=== PATIENT | female | born 1990 | race Hispanic/Latino ===

== ENCOUNTER 2024-05-28 13:46 | Emergency (ER) | payer BC, OTHER ==
[~2024-05-28] VITALS: Ht 167.6 cm; Wt 78.0 kg
[~2024-05-28 13:46] MED LIST: ALBU2.5V2 IH; CYCL5TAB3 PO; MONT-46 PO; NAPR-1194 PO; PRED20TA3 PO
[2024-05-28] MEDS: hydrOXYzine 50MG VIAL 50 MG/ML VIAL IM STA (14:43)
--- NOTE | 2024-05-28 14:44 | EKG ---
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
[2024-05-28 14:54] LABS: BASOPHILS # (AUTO) 0.04 K/uL (0.00-0.20); BASOPHILS % (AUTO) 0.5 % (0.0-5.0); EOSINOPHILS # (AUTO) 0.06 K/uL (0.00-0.70); EOSINOPHILS % (AUTO) 0.8 % (0.0-8.0); HEMATOCRIT 42.2 % (36-48); IMMATURE GRANULOCYTE ABSOLUTE 0.02 K/uL (0-1); LYMPHOCYTES # (AUTO) 2.1 K/uL (1.0-4.8); LYMPHOCYTES % (AUTO) 27.3 % (21.0-51.0); MEAN CORPUSCULAR HEMOGLOBIN 29.7 pg (27.0-33.0); MEAN CORPUSCULAR HGB CONC 33.2 g/dL (32.0-36.0); MEAN CORPUSCULAR VOLUME 89.4 fL (79-99); MONOCYTES # (AUTO) 0.6 K/uL (0.1-1.0); MONOCYTES % (AUTO) 7.2 % (3.0-13.0); NEUTROPHILS # (AUTO) 4.9 K/uL (1.8-7.7); NEUTROPHILS % (AUTO) 63.9 % (40.0-77.0); PLATELET COUNT (AUTO) 302 K/uL (130-400); RED BLOOD CELL COUNT(AUTO) 4.72 MIL/uL (4.00-5.50); RED CELL DISTRIBUTION WIDTH 12.6 % (11.0-15.5); WHITE BLOOD COUNT (AUTO) 7.7 K/uL (4.8-10.8)
[2024-05-28 15:05] LABS: CREATININE 0.8 mg/dL (0.5-1.0); POTASSIUM 3.8 mmol/L (3.5-5.1)
--- NOTE | 2024-05-28 16:23 | ERN ---
ED Note History of Present Illness Stated Complaint: LEFT SIDE FACE NUMBNESS/SHAKY Chief Complaint: Other Problems Time Seen by MD: 13:57 Time Seen by Midlevel: 14:00 Dictation: 34-year-old female coming in with complaints of feeling of numbness inside her cheek, and states she had chest pain in the morning. Patient also states she has been under lot of stress taking care of her dad and brother and also has not exam for school. Denies any numbness or tingling or any unilateral weakness. Patient has a cold sore on the side of the numbness of the lip, states she had it for a week and now is healing, also states she has had some congestion. Allergies: Coded Allergies: No Known Allergies (Unverified Allergy, Unknown, 08/31/22) Home Meds Active Scripts Naproxen (Naproxen) 500 Mg Tablet, 500 MG PO BID for 5 Days, #10 TAB Prov:ANTONINO HUMPHREYS 11/01/22 Cyclobenzaprine HCl (Cyclobenzaprine HCl) 5 Mg Tablet, 5 MG PO DAILYDINNER for 5 Days, #5 TAB Prov:ANTONINO HUMPHREYS 11/01/22 Montelukast Sodium (Singulair 10Mg) 10 Mg Tab, 10 MG PO DAILY for 30 Days, #30 TAB Prov:GERARD KNOTT 08/31/22 Prednisone (Prednisone) 20 Mg Tablet, 1 TAB PO BID for 5 Days, #10 TAB 0 Refills TAKE 1 TAB BY MOUTH THREE TIMES PER DAY X3 DAYS, THEN TAKE 1 TAB BY MOUTH TWICE A DAY X2 DAYS, THEN TAKE 1 TAB BY MOUTH ONCE A DAY X1 DAY. Prov:GERARD KNOTT 08/31/22 Albuterol Sulfate (Albuterol Sulfate) 2.5 Mg/3 Ml Vial.neb, 2.5 MG IH Q6H for wheezing for 7 Days, #28 INH Prov:GERARD KNOTT 08/31/22 Past Medical History Past Medical History: Asthma Surgical History: Review of System Dictation Constitutional: Negative for fever,chills, and weight loss Eyes: Negative for injury, pain,redness, and discharge ENT: Negative for injury,pain or swelling, complaining of numbness to the left inside of her mouth. Cardiovascular: Negative for chest pain, palpitations, and edema Respiratory: Negative for shortness of breath, cough, and wheezing, Abdomen/GI: Negative for abdominal pain, nausea, vomiting, diarrhea, and constipation Back: Negative for injury and pain : Negative for injury, bleeding and discharge MS/Extremity: Negative for injury and deformity Skin: Negative for rash, and discoloration Neuro: Negative for headache, weakness, numbness, tingling, and seizure Psych: Negative for suicide ideation, homicidal ideation, and hallucinations Review of Systems: was completed Initial Vital Sign VS Vital Signs Date Time Temp Pulse Resp B/P (MAP) Pulse Ox O2 Delivery O2 Flow Rate FiO2 05/28/24 13:50 98.4 102 18 152/103 97 Room Air 05/28/24 14:12 0 21 Physical Exam Dictation General: awake, alert, NAD Head/Face: Normocephalic, atraumatic Eyes: PERRL, EOMI, vision at baseline ENT: oral cavity clear, TMs clear, no signs of infection, periodontal disease noted, postnasal drip noted, sinus cavities inflamed swollen Neck: Trachea midline, supple, no nuchal rigidity Cardiovascular: RRR, normal S1/S2, No MRGs, no JVD Respiratory: CTAB, no respiratory distress, No rales or wheezes Abdomen: Soft, non-tender, non-distended, normal bowel sounds, no guarding or rebound. Skin: Warm, dry, normal turgor, no rash MS/Extremity: Pulses equal, no cyanosis, neurovascular intact, FROM Neuro: COAx4, GCS 15, strength 5/5, CN 2-12 intact, normal cerebellar exam, normal gait, Psych: Normal behavior, mood, and affect normal Results (Laboratory/Radiology) Laboratory/Radiology Laboratory Tests Test 05/28/24 14:40 White Blood Count 7.7 K/uL (4.8-10.8) Red Blood Count 4.72 MIL/uL (4.00-5.50) Hemoglobin 14.0 g/dL (12.0-16.0) Hematocrit 42.2 % (36-48) Mean Corpuscular Volume 89.4 fL (79-99) Mean Corpuscular Hemoglobin 29.7 pg (27.0-33.0) Mean Corpuscular Hemoglobin Concent 33.2 g/dL (32.0-36.0) Red Cell Distribution Width 12.6 % (11.0-15.5) Platelet Count 302 K/uL (130-400) Mean Platelet Volume 10.1 fL (7.5-10.5) Immature Granulocyte % (Auto) 0.3 % (0-1) Neutrophils (%) (Auto) 63.9 % (40.0-77.0) Lymphocytes (%) (Auto) 27.3 % (21.0-51.0) Monocytes (%) (Auto) 7.2 % (3.0-13.0) Eosinophils (%) (Auto) 0.8 % (0.0-8.0) Basophils (%) (Auto) 0.5 % (0.0-5.0) Neutrophils # (Auto) 4.9 K/uL (1.8-7.7) Lymphocytes # (Auto) 2.1 K/uL (1.0-4.8) Monocytes # (Auto) 0.6 K/uL (0.1-1.0) Eosinophils # (Auto) 0.06 K/uL (0.00-0.70) Basophils # (Auto) 0.04 K/uL (0.00-0.20) Absolute Immature Granulocyte (auto 0.02 K/uL (0-1) Nucleated Red Blood Cells 0.0 % (0.0-0.19) Sodium Level 137 mmol/L (136-145) Potassium Level 3.8 mmol/L (3.5-5.1) Chloride Level 103 mmol/L (101-111) Carbon Dioxide Level 28 mmol/L (21-32) Blood Urea Nitrogen 9 mg/dL (7-18) Creatinine 0.8 mg/dL (0.5-1.0) Glomerular Filtration Rate Calc 100 mL/min (>90) Random Glucose 99 mg/dL (70-105) Total Calcium 8.9 mg/dL (8.5-10.1) Troponin I High Sensitivity < 4 ng/L (4-50) L Serum Test, Qualitative NEGATIVE (NEGATIVE) Labs Reviewed?: Yes EKG Comment: EKGs done at 2:42 p.m.. Sinus rhythm at a rate of 78. No STEMI interpreted by ER MD ED Course ED Course Orders Procedure Category Date Status Time Cbc With Differential LAB 05/28/24 Complete 14:30 Basic Metabolic Panel LAB 05/28/24 Complete 14:30 Troponin I High LAB 05/28/24 Complete Sensitivity 14:30 12 Lead Ekg Tracing- EKG 05/28/24 Complete Technical 14:30 Chest 1vw RAD 05/28/24 Taken 14:30 Hydroxyzine 50mg Vial PHA 05/28/24 Complete (Atarax 50mg Inj) 14:30 Testing, LAB 05/28/24 Complete Serum Hcg 15:15 Current Medications Medications (Trade) Dose Ordered Sig/Ilene Route PRN Reason Start Time Stop Time Status Last Admin Dose Admin Hydroxyzine HCl (ATArax 50MG INJ) 25 mg ONCE STAT IM 05/28/24 14:30 05/28/24 14:32 DC 05/28/24 14:43 Vital Signs Date Time Temp Pulse Resp B/P (MAP) Pulse Ox O2 Delivery O2 Flow Rate FiO2 05/28/24 14:12 98.4 102 18 152/93 97 Room Air* 0 21 05/28/24 13:50 98.4 102 18 152/103 97 Room Air Medical Decision Making MDM MDM: 34-year-old female coming in with complaints of feeling of numbness inside her cheek, and states she had chest pain in the morning. Patient also states she has been under lot of stress taking care of her dad and brother and also has not exam for school. Denies any numbness or tingling or any unilateral weakness. Patient has a cold sore on the side of the numbness of the lip, states she had it for a week and now is healing, also states she has had some congestion. Get workup unremarkable. Chest x-ray shows no acute findings. EKGs shows sinus rhythm no cardiac findings. After hydroxyzine IM patient states he feels better, ER MD assessed patient with me, patient will be discharged with periodontal disease, and sinusitis. Discussed with the patient she needs to follow up with a dentist in with ENT. Patient verbalized understanding, answered all questions. Differential diagnosis: ACS, anxiety, gingivitis, herpes Rationale: Tests considered and ordered secondary to shared decision making include: Previous outside records reviewed: Old ER visits. Risk of complication and/or morbidity or mortality of patient management: None Medications-Per medication reconciliation Need for hospitalization: Patient does not meet criteria for hospitalization. Need for emergency major/minor surgery: No There are no social concerns with this patient. Prescription drug management Prescriptions will include symptomatic care Patient's prior external medical records from other ER visits were reviewed by me as indicated. Prior testing and results from previous visits were reviewed. Prior tests were taken into account with medical decision making and resource utilization, independent historian/historians were used to obtain complete medical history. I independently interpreted the test that were performed, results were reviewed by me and considered findings on radiology if ordered. Medical management and examination interpretation discussions were had by me with other qualified healthcare professionals as indicated for the patient's care. DX & DISP Disposition: Discharge Departure Impression: Primary Impression: Costochondritis, acute Additional Impressions: Stress at home, Dental disease, Sinusitis Condition: Stable Scripts Amoxicillin/Potassium Clav (Amox Tr-K Clv 875-125 mg Tab) 875 Mg-125 Mg Tablet 1 TAB PO BID for 7 Days, #14 TAB 0 Refills Prov: MARK URENA NP 05/28/24 Additional Instructions: Follow up with PCP and with dentist. Finished antibiotic treatment. Return to the hospital symptoms worsen. Referrals: SELF,REFERRAL (PCP) Time of Disposition: 16:22 I have reviewed the case, and I agree with, Diagnosis and Plan MARK URENA NP May 28, 2024 16:23
[2024-05-28] MEDS ORDERED: AMOX1TAB16 PO (16:25)
[2024-05-28] MEDS: dexaMETHasone SOD PHOSPHATE 4 MG/ML 1ML VIAL IM STA (16:58)
[2024-05-28 16:59] VITALS: BP 147/84; PULSE 92; RESP 18; TEMP 98.4; O2SAT 97
--- NOTE | 2024-05-28 17:00 | HMCIMG ---
CHEST 1VW HISTORY: Chest pain COMPARISON: 08/31/2022 FINDINGS: A frontal projection of the chest was obtained. No acute pulmonary infiltrates is seen. The heart is normal in size. All the lines and tubes are again seen in place. Mild degenerative changes are seen. IMPRESSION: 1. No acute pulmonary infiltrate is seen.
== END 2024-05-28 17:01 | disposition home or self-care (01) ==
LOC: EDH 13:46
DX: M94.0 Chondrocostal junction syndrome [Tietze] (principal); J32.9 Chronic sinusitis, unspecified; F43.9 Reaction to severe stress, unspecified; K08.89 Other specified disorders of teeth and supporting structures; J45.909 Unspecified asthma, uncomplicated; Z79.52 Long term (current) use of systemic steroids; Z79.899 Other long term (current) drug therapy; Z98.890 Other specified postprocedural states
CPT/HCPCS: 99284; 71045; 84484; 80048; 84703; 85025; 36415; 96372 ×2; 93005; J1100; J3410